=== PATIENT | female | born 1940 | race Asian ===

== ENCOUNTER 2016-04-23 13:33 | Emergency (ER) | payer MEDICARE, MEDICAID ==
--- NOTE | 2016-04-23 13:59 | ER Document Report ---
ED Medical Screen (RME) - General Stated Complaint: STOMACH PAIN Notes: patient is c/o stomach pain in RUQ for one month that is post prandial with nausea. denies h/o reflux, heartburn also c/o left breast swelling for one month on HD wednesday, wednesday and wednesday for ESRD I have greeted and performed a rapid initial assessment of this patient. A comprehensive ED assessment and evaluation of the patient, analysis of test results and completion of the medical decision making process will be conducted by additional ED providers. TRAVEL OUTSIDE OF THE [place] IN LAST 30 DAYS: No - Related Data Allergies/Adverse Reactions: Penicillins Allergy (Severe, Verified 12/19/15 10:37) Anaphylaxis Shellfish * [Shellfish] Allergy (Severe, Verified 12/19/15 10:37) Anaphy soy [Soy] Allergy (Severe, Verified 12/19/15 10:37) bloating latex [Latex] Allergy (Mild, Verified 12/19/15 10:37) Rash environmental Allergy (Severe, Uncoded 12/19/15 10:37) sinuses Past Medical History - Past Medical History Cardiac Medical History: Reports: Hx Hypercholesterolemia, Hx Hypertension - hx of Denies: Hx Coronary Artery Disease, Hx Heart Attack Pulmonary Medical History: Reports: Hx Asthma Denies: Hx Bronchitis, Hx COPD, Hx Pneumonia Neurological Medical History: Denies: Hx Cerebrovascular Accident, Hx Seizures Renal/ Medical History: Reports: Hx End Stage Renal Disease, Hx Hemodialysis GI Medical History: Denies: Hx Hepatitis, Hx Hiatal Hernia, Hx Ulcer Musculoskeltal Medical History: Reports Hx Arthritis - mild Psychiatric Medical History: Denies: Hx Depression Infectious Medical History: Denies: Hx Hepatitis Past Surgical History: Reports: Hx Section - x 3, Hx Orthopedic Surgery - Right wtist, Right Knee, Hx Tonsillectomy, Hx Tubal Ligation. Denies : Hx Hysterectomy, Hx Mastectomy, Hx Open Heart Surgery, Hx Pacemaker - Immunizations Hx Diphtheria, Pertussis, Tetanus Vaccination: Yes Physical Exam - Vital signs Vitals: Temp Pulse Resp BP Pulse Ox 97.8 F 89 18 218/73 H 97 04/23/16 13:53 04/23/16 13:53 04/23/16 13:53 04/23/16 13:53 04/23/16 13:53 Course - Vital Signs Vital signs: Temp Pulse Resp BP Pulse Ox 97.8 F 89 18 218/73 H 97 04/23/16 13:53 04/23/16 13:53 04/23/16 13:53 04/23/16 13:53 04/23/16 13:53
[2016-04-23 14:30] LABS: ABSOLUTE LYMPHOCYTES (AUTO) 1.7 10^3/uL (0.5-4.7); ABSOLUTE MONOCYTES (AUTO) 0.6 10^3/uL (0.1-1.4); ABSOLUTE NEUT (AUTO) 4.4 10^3/uL (1.7-8.2); BASOPHILS % (AUTO) 0.6 % (0-2); EOSINOPHILS % (AUTO) 0.4 % (0-6); HEMATOCRIT 36.6 % (36.0-47.0); HEMOGLOBIN 12.1 g/dL (12.0-15.5); HGB HCT DIFFERENCE -0.3; LYMPHOCYTES % (AUTO) 24.7 % (13-45); MEAN CORPUSCULAR HEMOGLOBIN 29.7 pg (27.0-33.4); MEAN CORPUSCULAR VOLUME 90 fl (80-97); MONOCYTES % (AUTO) 9.4 % (3-13); RED BLOOD COUNT 4.06 10^6/uL (3.72-5.28); SEGMENTED NEUTROPHILS % (AUTO) 64.9 % (42-78); WHITE BLOOD COUNT 6.8 10^3/uL (4.0-10.5)
--- NOTE | 2016-04-23 14:31 | ER Document Report ---
ED General - General Mode of Arrival: Ambulatory Information source: Patient TRAVEL OUTSIDE OF THE [place] IN LAST 30 DAYS: No - HPI Onset: Other - see narrative Onset/Duration: Persistent Similar symptoms previously: Yes <TANI QUINTEROS - Last Filed: 04/23/16 16:57> <KOLE CARRASCO - Last Filed: 04/29/16 22:28> - General Chief Complaint: Abdominal Pain Stated Complaint: STOMACH PAIN Notes: Patient is a 75-year-old female that presents to the emergency department today with complaints of "fluid on her lungs". Patient states she has had this in the past and has had it drained but she is "not sure what caused it". Patient also states that she has noticed that her left breast is larger than her right. Patient states she has a tightness/heaviness in her chest with breathing. Patient states she has had intermittent nausea for one month. Patient states she has a history of hypertension but she has not taken her clonidine yet today. Patient denies any shortness of breath, history of malignancy, or history of tuberculosis. (TANI QUINTEROS) - Related Data Allergies/Adverse Reactions: Penicillins Allergy (Severe, Verified 04/23/16 13:56) Anaphylaxis Shellfish * [Shellfish] Allergy (Severe, Verified 04/23/16 13:56) Anaphy soy [Soy] Allergy (Severe, Verified 04/23/16 13:56) bloating latex [Latex] Allergy (Mild, Verified 04/23/16 13:56) Rash environmental Allergy (Severe, Uncoded 04/23/16 13:56) sinuses Past Medical History - General Information source: Patient, [facility] Records - Social History Smoking Status: Never Smoker Cigarette use (# per day): No Chew tobacco use (# tins/day): No Frequency of alcohol use: None Drug Abuse: None Lives with: Family Family History: Reviewed & Not Pertinent Patient has suicidal ideation: No Patient has homicidal ideation: No - Past Medical History Cardiac Medical History: Reports: Hx Hypercholesterolemia, Hx Hypertension Pulmonary Medical History: Reports: Hx Asthma Renal/ Medical History: Reports: Hx End Stage Renal Disease, Hx Hemodialysis Musculoskeltal Medical History: Reports Hx Arthritis - mild Past Surgical History: Reports: Hx Section - x 3, Hx Orthopedic Surgery - Right wrist, Right Knee, Hx Tonsillectomy, Hx Tubal Ligation - Immunizations Hx Diphtheria, Pertussis, Tetanus Vaccination: Yes Hx Pneumococcal Vaccination: 11/16/15 <TANI QUINTEROS - Last Filed: 04/23/16 16:57> Review of Systems - Review of Systems Constitutional: No symptoms reported EENT: No symptoms reported Cardiovascular: No symptoms reported Respiratory: See HPI, Other - "fluid on lungs". denies: Short of breath Gastrointestinal: See HPI, Abdominal pain, Nausea. denies: Vomiting Genitourinary: No symptoms reported Female Genitourinary: No symptoms reported Musculoskeletal: No symptoms reported Skin: No symptoms reported Hematologic/Lymphatic: No symptoms reported Neurological/Psychological: No symptoms reported -: Yes All other systems reviewed and negative <TANI QUINTEROS - Last Filed: 04/23/16 16:57> Physical Exam - General General appearance: Appears well, Alert In distress: None - HEENT Head: Normocephalic, Atraumatic Eyes: Normal Conjunctiva: Normal - Respiratory Respiratory status: No respiratory distress Chest status: Nontender Breath sounds: Normal - Cardiovascular Rhythm: Regular Heart sounds: Normal auscultation Murmur: No - Abdominal Inspection: Normal Distension: No distension Bowel sounds: Normal Tenderness: Nontender - Extremities General upper extremity: Normal inspection, Normal ROM. No: Edema General lower extremity: Normal inspection, Normal ROM. No: Edema - Neurological Neuro grossly intact: Yes Cognition: Normal Orientation: AAOx4 Speech: Normal - Psychological Associated symptoms: Normal affect, Normal mood - Skin Skin Temperature: Warm Skin Moisture: Dry Skin Color: Normal <TANI QUINTEROS - Last Filed: 04/23/16 16:57> <KOLE CARRASCO - Last Filed: 04/29/16 22:28> - Vital signs Vitals: Temp Pulse Resp BP Pulse Ox 97.8 F 89 18 218/73 H 97 04/23/16 13:53 04/23/16 13:53 04/23/16 13:53 04/23/16 13:53 04/23/16 13:53 - Notes Notes: Left breast is larger than right breast, no palpable masses appreciated. (TANI QUINTEROS) Course - Laboratory Result Diagrams: 04/23/16 14:05 04/23/16 14:05 <TANI QUINTEROS - Last Filed: 04/23/16 16:57> - Laboratory Result Diagrams: 04/23/16 14:05 04/23/16 14:05 <KOLE CARRASCO - Last Filed: 04/29/16 22:28> - Re-evaluation Re-evalutation: 04/23/16 18:30 I personally performed the services described in the documentation, reviewed and edited the documentation which was dictated to my scribe in my presence, and it accurately records my words and actions. Patient presents emergency Department with a chief complaint of I have a history of a pleural effusion and I think it needs to be drained again and my left breast is swollen on and off for several months. Says she got a new family doctor hasn't seen them yet recalls having a pleural effusion drained doesn't recall any other details said it was noncancerous. Doesn't recall who drained it does not feel short of breath she is a dialysis patient went to dialysis yesterday with no problems no chest pain no shortness of breath blood pressures little elevated A gave her her clonidine here on arrival. She also said that her left breast has been swollen for months. She has no tenderness in that area. On physical examination well-appearing nontoxic in no acute distress lungs are clear no shortness of breath breast is diffusely swollen but no infection or palpable masses ultrasound of the breast shows swelling but no definitive masses or infection. Large to moderate pleural effusion not associated with shortness of breath contacted interventional radiology going to fax an order over to them they will call her tomorrow and set up an outpatient appointment to drain the fluid. She is to return immediate for increasing shortness breath or any other concerns otherwise follow up dialysis tomorrow primary care physician one to 2 days return for increasing worsening or new symptoms 04/23/16 18:34 (KOLE CARRASCO) - Vital Signs Vital signs: Temp Pulse Resp BP Pulse Ox 97.6 F 63 18 129/61 H 97 04/23/16 19:30 04/23/16 19:30 04/23/16 19:30 04/23/16 19:30 04/23/16 19:30 - Laboratory Laboratory results interpreted by me: 04/23/16 04/23/16 04/23/16 14:05 14:05 14:05 RDW 16.0 H Chloride 97 L BUN 28 H Creatinine 3.92 H Est GFR ( Amer) 13 L Est GFR (Non-Af Amer) 11 L Glucose 131 H Urine Protein >=500 H Urine Ketones TRACE H Discharge <TANI QUINTERSO - Last Filed: 04/23/16 16:57> <LUNAKOLE - Last Filed: 04/29/16 22:28> - Discharge Clinical Impression: Pleural effusion, Breast swelling Condition: Stable Disposition: HOME, SELF-CARE Additional Instructions: Pleural Effusion You have a pleural effusion. A pleural effusion is fluid in the space between your lung and chest wall. This can be caused by pleurisy (inflammation of the lung lining), pneumonia, heart disease, pulmonary embolism (blood clots in the lung), or chest injury. It may also occur with any condition that results in severe fluid retention, such as kidney or liver failure. Occasionally the effusion is due to tumor or other serious conditions. A pleural effusion may not cause any symptoms at all. But often, there is sharp pain with breathing. A large effusion can make you short of breath. If we know what caused a pleural effusion, there's usually no need for further testing. In these cases, we treat the underlying illness. In mysterious cases, a sample of the fluid can show what caused the effusion. This sample is obtained by putting a needle between the ribs. If the effusion is large enough to cause shortness of breath, we can remove it through the needle. Follow-up is important. Be sure to see the doctor for further care. Call or return if you become very short of breath, have increasing pain, or develop a new fever. [facility] [address] [address] Breast Pain Breast pain is a common concern with many causes, most of which are benign (not cancer). Pain should first be evaluated fully by a health care provider to include a thorough breast exam and potentially breast imaging such as a mammogram and/or ultrasound. If this evaluation fails to identify an abnormality such as a cyst causing the pain, therapies aimed at treating physiologic breast pain can be considered. Physiologic breast pain generally falls into three categories: 1. Dietary. Often women do not get enough Vitamin E or an essential fatty acid called linoleic acid. Deficiencies of these can cause breast pain. Therefore, we recommend: A. A trial of decreasing or eliminating caffeine intake. B. Oil of Evening [place] at a dose of 2 to 3 grams by mouth per day C. Vitamin E at a dose of 400 to 800 IU by mouth per day. Follow-up with your physician in one to 2 days I have faxed a copy requesting a drain in your lung fluid they will contact you to schedule an outpatient appointment. Return to the ER sooner for increasing worsening or new symptoms Both Evening [place] Oil and Vitamin E are available [id number] at most well-stocked pharmacies, [facility] or even stores such as [employer] or the like with a nutritional supplement aisle. We advise to start one or the other and observe for pain relief after several months or consistent use. If the pain continues, stop the supplement and try the other option for several months. If no improvement with the second supplement then other options should be considered. 2. Hormonal variations. Women often have breast pain as their hormone levels fluctuate prior to their menstrual period, during and during menopause. Jazmine- and post-menopausal women on hormone replacement therapy can experience breast discomfort as a side effect of the medications. Lastly, a small amount of estrogen is made in the fatty tissues of everyones body. Weight loss can often decrease the amount of this estrogen and in turn may decrease breast pain in overweight patients. 3. Structural. The breasts are held onto the chest wall by Coopers ligaments within the breast. Stretching of these ligaments can cause breast pain especially in larger breasted women. A well supportive and well fitting bra is critical to some women to relieve their pain. We advise that the women see a bra-fitter at [facility] or other [facility] to find an appropriately fitting undergarment. If breast discomfort is a problem with removal of ones bra at the end of the day, consideration should be given to wear a comfortable sleep bra such as a nursing bra to bed to provide more support. For acute flares of pain, [id number] Tylenol or Ibuprofen such as Advil or Motrin should suffice for most patients to relieve their discomfort. It is also important to note that the breast and chest wall share a common nerve supply and so muscle strains, arthritis or other inflammatory conditions of the chest wall can cause referred pain in the breast and are often relieved with anti-inflammatories. Scribe Documentation - Scribe Written by Tray:: Tray Cooper, 04/23/2016 1705 acting as scribe for :: Luna <TANI QUINTEROS - Last Filed: 04/23/16 16:57>
[2016-04-23 14:35] LABS: APPEARANCE,URINE SLIGHTLY-CLOUDY; BILIRUBIN,URINE NEGATIVE (NEGATIVE); GLUCOSE, URINE NEGATIVE (NEGATIVE); KETONES,URINE TRACE mg/dL (NEGATIVE); LEUKOCYTE ESTERASE,URINE NEGATIVE (NEGATIVE); NITRITE,URINE NEGATIVE (NEGATIVE); PROTEIN,URINE >=500 mg/dL (NEGATIVE); URINE SPECIFIC GRAVITY 1.017; UROBILINOGEN,URINE NEGATIVE mg/dL (<2.0)
[2016-04-23 14:51] LABS: ALANINE AMINOTRANSFERASE 26 U/L (9-52); ALBUMIN 4.4 g/dL (3.5-5.0); ALKALINE PHOSPHATASE 106 U/L (38-126); ANION GAP 13 (5-19); ASPARTATE AMINO TRANSFERASE 30 U/L (14-36); BILIRUBIN,TOTAL 0.8 mg/dL (0.2-1.3); BLOOD UREA NITROGEN 28 mg/dL (7-20); CALCIUM 9.9 mg/dL (8.4-10.2); CARBON DIOXIDE 30 mmol/L (22-30); CHLORIDE 97 mmol/L (98-107); CREATININE RESULT 3.92 mg/dL (0.52-1.25); GLUCOSE 131 mg/dL (75-110); LIPASE 146.4 U/L (23-300); POTASSIUM 3.8 mmol/L (3.6-5.0); SODIUM 139.5 mmol/L (137-145); TOTAL PROTEIN 7.7 g/dL (6.3-8.2)
[2016-04-23 19:33] VITALS: BP 129/61
== END 2016-04-23 19:33 | disposition home or self-care (01) ==
LOC: ER 13:33
DX: J90 Pleural effusion, not elsewhere classified (principal); N63 Unspecified lump in breast; R11.0 Nausea; J45.909 Unspecified asthma, uncomplicated; I12.0 Hypertensive chronic kidney disease with stage 5 chronic kidney disease or end stage renal disease; N18.6 End stage renal disease; Z99.2 Dependence on renal dialysis; Z79.899 Other long term (current) drug therapy; Z91.048 Other nonmedicinal substance allergy status; Z91.040 Latex allergy status; Z87.892 Personal history of anaphylaxis; Z88.0 Allergy status to penicillin; Z91.013 Allergy to seafood
CPT/HCPCS: 36415; 51701; 71020; 76641; 80053; 81001; 83690; 85025; 99284

== ENCOUNTER 2016-05-05 06:58 | Day surgery (SDC) | payer MEDICARE, MEDICAID ==
[2016-05-05 08:12] LABS: HEMATOCRIT 35.2 % (36.0-47.0); HEMOGLOBIN 11.8 g/dL (12.0-15.5); HGB HCT DIFFERENCE 0.2; MEAN CORPUSCULAR HEMOGLOBIN 29.7 pg (27.0-33.4); MEAN CORPUSCULAR HGB CONC 33.5 g/dL (32.0-36.0); MEAN CORPUSCULAR VOLUME 89 fl (80-97); RED BLOOD COUNT 3.98 10^6/uL (3.72-5.28); RED CELL DISTRIBUTION WIDTH 16.6 % (11.5-14.0); WHITE BLOOD COUNT 6.9 10^3/uL (4.0-10.5)
[2016-05-05 08:19] LABS: PROTHROMBIN TIME 13.3 SEC (11.4-15.4)
[2016-05-05 08:34] LABS: BLOOD UREA NITROGEN 26 mg/dL (7-20); CREATININE RESULT 3.74 mg/dL (0.52-1.25)
[2016-05-05] MEDS ORDERED: CLONIDINE HCL 0.1 MG TABLET PO ONE (10:00)
[2016-05-05 15:30] VITALS: BP 137/59
== END 2016-05-05 12:25 | disposition home or self-care (01) ==
LOC: RAD 06:58
PROVIDERS: ATTEND Emergency Medicine
PROC: 0W9B3ZZ Drainage of Left Pleural Cavity, Percutaneous Approach (ICD-10-PCS; principal; 2016-05-05)
DX: J90 Pleural effusion, not elsewhere classified (principal); N18.6 End stage renal disease; Z79.01 Long term (current) use of anticoagulants; Z79.899 Other long term (current) drug therapy; Z88.0 Allergy status to penicillin; Z91.040 Latex allergy status
CPT/HCPCS: 36415; 84520; 82565; 85027; 85610; 85730; 88162; 88342 ×2; 88341 ×2; 88305 ×2; 71010; 32555; A9270

== ENCOUNTER → 2016-06-25 | Outpatient (CLI) | payer MEDICARE, MEDICAID | LOC: WI 12:33 | PROVIDERS: ATTEND Family Medicine Geriatric Medicine | DX: Z12.31 Encounter for screening mammogram for malignant neoplasm of breast (principal) | CPT/HCPCS: 77067; G0202 ==